=== PATIENT | female | born 1970 | race Caucasian/White ===

== ENCOUNTER 2018-02-22 00:14 | Outpatient (CLI) | payer SELFPAY ==
[2018-02-22 09:46] LABS: HCT 43.2 % (36.0-46.0); Mean Corp. HGB Concentration 34.7 g/dL (32.0-36.0); Mean Corpuscular Hemoglobin 32.9 pg (27.0-33.0); Mean Corpuscular Volume 94.7 fL (80-95); Mean Platelet Volume 9.8 fL (8.0-11.0); Platelet Count 350 x1000/uL (130-400); RBC 4.56 m/cumm (4.00-5.20); RBC Distribution Width 12.7 % (11.7-14.6); White Blood Cell Count 9.48 k/cumm (4.4-10.8)
[2018-02-22 10:40] LABS: ALT 59 U/L (12-78); AST 29 U/L (15-37); Albumin 3.4 g/dL (3.4-5.0); Alkaline Phosphatase 58 U/L (46-116); Anion Gap 9.9 mmol/L (3-11); BUN 11 mg/dL (7-18); Bilirubin, Total 0.6 mg/dL (0.2-1.0); CO2 28.1 mmol/L (21.0-32.0); CREATININE 0.75 mg/dL (0.55-1.02); Calcium 8.8 mg/dL (8.5-10.1); Chloride 103 mmol/L (98-107); Glucose 89 mg/dL (70-100); Potassium 3.7 mmol/L (3.5-5.1); Sodium 141 mmol/L (136-145); Total Protein 7.1 g/dL (6.4-8.2)
== END 2018-02-22 00:34 ==
PROVIDERS: PCP Family Medicine; Visit Provider Family Medicine
DX: I10 Essential (primary) hypertension (principal)
CPT/HCPCS: 36415; 80053; 85027

== ENCOUNTER 2019-08-28 02:27 | Outpatient (CLI) | payer SELFPAY ==
[2019-08-28 07:34] LABS: HCT 42.8 % (36.0-46.0); HGB 14.7 g/dL (12.0-15.5); Mean Corp. HGB Concentration 34.3 g/dL (32.0-36.0); Mean Corpuscular Hemoglobin 32.9 pg (27.0-33.0); Mean Corpuscular Volume 95.7 fL (80-95); Mean Platelet Volume 9.7 fL (8.0-11.0); Platelet Count 374 x1000/uL (130-400); RBC 4.47 m/cumm (4.00-5.20); RBC Distribution Width 12.5 % (11.7-14.6); White Blood Cell Count 8.89 k/cumm (4.4-10.8)
[2019-08-28 08:45] LABS: ALT 40 U/L (14-59); AST 22 U/L (15-37); Albumin 3.7 g/dL (3.4-5.0); Alkaline Phosphatase 59 U/L (46-116); Anion Gap 8.1 mmol/L (3-11); BUN 16 mg/dL (7-18); Bilirubin, Total 0.5 mg/dL (0.2-1.0); CO2 28.9 mmol/L (21.0-32.0); CREATININE 0.86 mg/dL (0.55-1.02); Calcium 8.6 mg/dL (8.5-10.1); Calculated LDL 117 mg/dL (<100); Chloride 102 mmol/L (98-107); Cholesterol 193 mg/dL (<200); Glucose 98 mg/dL (74-106); HDL Cholesterol 48 mg/dL (40-60); Potassium 3.6 mmol/L (3.5-5.1); Sodium 139 mmol/L (136-145); Total Protein 7.3 g/dL (6.4-8.2); Triglyceride 140 mg/dL (<150)
== END 2019-08-28 02:47 ==
PROVIDERS: PCP Family Medicine; Visit Provider Family Medicine
DX: I10 Essential (primary) hypertension (principal)
CPT/HCPCS: 36415; 80053; 80061; 85027

== ENCOUNTER 2021-08-14 02:13 | Outpatient (CLI) | payer BC, SELFPAY ==
[2021-08-14 16:22] LABS: Anion Gap 9.8 mmol/L (3-11); BUN 15 mg/dL (7-18); CO2 26.2 mmol/L (21.0-32.0); CREATININE 0.7 mg/dL (0.55-1.02); Calcium 8.6 mg/dL (8.5-10.1); Chloride 104 mmol/L (98-107); Glucose 98 mg/dL (74-106); Potassium 3.6 mmol/L (3.5-5.1); Sodium 140 mmol/L (136-145)
== END 2021-08-14 02:14 | disposition home or self-care (01) ==
LOC: LBO 02:13
PROVIDERS: PCP Family Medicine; Visit Provider Family Medicine
DX: I10 Essential (primary) hypertension (principal)
CPT/HCPCS: 36415; 80048

== ENCOUNTER 2022-01-17 20:58 | Outpatient (REF) | payer BC, SELFPAY ==
[2022-01-17 21:42] LABS: Bilirubin Negative (Negative); Blood Negative (Negative); Clarity Clear (Clear); Glucose Negative (Negative); Ketones Negative (Negative); Leukocyte Esterase Negative (Negative); Nitrite Negative (Negative); Urobilinogen 0.2 EU/dL (Up TO 0.2); pH 6.5 (5-8)
== END 2022-01-17 20:59 | disposition home or self-care (01) ==
LOC: LBN 20:58
PROVIDERS: PCP Family Medicine; Visit Provider Family Medicine
DX: R30.0 Dysuria (principal); R10.9 Unspecified abdominal pain
CPT/HCPCS: 81003

== ENCOUNTER 2022-01-22 03:06 | Outpatient (CLI) | payer BC, SELFPAY ==
[2022-01-22 14:31] LABS: Abs Immature Grans 0.01 10^3/uL (0.0-0.06); Absolute Basophil Count 0.04 10^3/uL (0.0-0.2); Absolute Eosinophil Count 0.13 10^3/uL (0.0-0.7); Absolute Lymphocyte Count 3.17 10^3/uL (1.2-3.4); Absolute Monocyte Count 0.53 10^3/uL (0.1-0.8); Absolute Neutrophil Count 3.85 10^3/uL (1.2-6.7); Basophils % 0.5; Eosinophils % 1.7; HCT 39.4 % (36.0-46.0); HGB 13.8 g/dL (11.2-15.7); Immature Grans % 0.1; MCH 32.3 pg (27.0-33.0); MCV 92 fL (80-95); MPV 9.8 fL (8.0-11.0); Monocytes % 6.9; Neutrophils % 49.8; Platelet Count 367 10^3/uL (130-400); RBC 4.27 10^6/uL (3.93-5.22); RDW 12.1 % (11.7-14.6); RDW-SD 41.1 fL; WBC 7.73 10^3/uL (4.4-10.8)
[2022-01-22 15:23] LABS: ALT 61 U/L (14-59); AST 26 U/L (15-37); Albumin 3.6 g/dL (3.4-5.0); Alkaline Phosphatase 59 U/L (46-116); Anion Gap 7.6 mmol/L (3-11); BUN 10 mg/dL (7-18); Bilirubin, Total 0.5 mg/dL (0.2-1.0); CO2 27.4 mmol/L (21.0-32.0); CREATININE 0.8 mg/dL (0.55-1.02); Calcium 8.7 mg/dL (8.5-10.1); Chloride 103 mmol/L (98-107); Estimated GFR 90.27 (mL/min/1.73m2); Glucose 88 mg/dL (74-106); Lipase 85 U/L (73-393); Potassium 3.1 mmol/L (3.5-5.1); Sodium 138 mmol/L (136-145); Total Protein 7.8 g/dL (6.4-8.2)
== END 2022-01-22 03:07 | disposition home or self-care (01) ==
LOC: LBO 03:06
PROVIDERS: PCP Family Medicine; Visit Provider Family Medicine
DX: Z00.00 Encounter for general adult medical examination without abnormal findings (principal); R10.9 Unspecified abdominal pain
CPT/HCPCS: 36415; 80053; 83690; 85025

== ENCOUNTER 2022-05-15 07:26 | Day surgery (SDC) | payer BC, SELFPAY ==
--- NOTE | 2022-05-14 20:18 | W.PREOPHP ---
Assessment and Plan Assessment and plan (1) Abdominal pain: Status: Acute Assessment and plan: EGD and colonoscopy today Qualifiers: Abdominal location: epigastric Qualified Code(s): R10.13 - Epigastric pain History of Present Illness History of Present Illness Chief Complaint: Abdominal pain Narrative: She is 51 years old, has been experiencing pain in the midepigastrium that radiates to the left side.? Does not recall when exactly the abdominal pain started.? It sounds like she was taking omeprazole (perhaps [id number]) in January, and this was ultimately changed over to pantoprazole.? Since then, she has had some improvement in her gastroesophageal reflux symptoms, but continues to have pain in the mid epigastrium that is exacerbated with the intake of essentially all kinds of food.? Food products and liquids give her equal amounts of discomfort.? She has associated weight loss because of the pain and associated nausea.? She denies changes in the character of her bowel movements, but she does describe intermittent hematochezia.? She did undergo a CAT scan of the abdomen and pelvis several days ago that demonstrated some sigmoid diverticulosis, with segmental colonic wall thickening.? She denies any family history of colorectal cancers, but details of her family medical history are not well known. Since her last office visit, she did have some improvement in her reflux symptoms, but she is experienced a little bit of recrudescence over the past 2 weeks or so. PFSH All Active Problems HTN (hypertension) (Chronic) Class 3 severe obesity due to excess calories in adult (Acute) Body mass index [BMI] 40.0-44.9, adult (Acute) Nicotine dependence due to vaping tobacco product (Acute) Marijuana use (Acute) uses it to assist with her attention and concentration. Nocturnal leg cramps (Chronic) managing with diet. Abdominal pain (Acute) Steatosis of liver (Acute) Benign cyst of left kidney (Acute) Muscular abdominal pain in left flank (Acute) Medical History Sprain of medial collateral ligament of left knee Surgical History S/P appendectomy Status post tubal ligation Social History Smoking/Tobacco Use Status: Current every day Tobacco Type: e-cigarettes Tobacco: How many years used: 28 Quit status: not considering quitting Second Hand Exposure: Yes Counseling given: provider counseling Smoking risk assessment performed?: Yes Alcohol Intake: never Drug use: Daily Substance use type: marijuana Counseling given: No Details: last use today, 05/15/22 at 0200 Caregiver/Support person: No Household members: none Housing: apartment Number of Children: 2 Communication Needs: None Education Level: college Details: 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 Do you need help understanding health information?: Never current occupation: works as a stitcher for [employer] Pets and animals: Yes Pets and animals: other Details: Fish Sexually active: Yes Do you think of yourself as: straight/heterosexual Current gender identity: female What is your relationship status?: don't know How often do you talk on the phone with friends or family?: never How often do you get together with friends or relatives?: three or more times per week Do you belong to any clubs or organized social groups?: no Panel score (0-1 are the most socially isolated patients): 1 What type of physical activity do you participate in: none Glendy/Yarsani: Other Special glendy needs: No Seatbelt use: always Drive intox or ride w/intox trailer tank truck driver: No Do you feel safe at home: Yes Do you feel safe in your relationship?: Yes Female Reproductive History Menstrual Duration of menses: 8-10 days control method: permanent sterilization Meds Allergies and Home Medications Allergies Allergy/AdvReac Type Severity Reaction Status Date / Time Sulfa (Sulfonamide Allergy Severe Anaphylaxsi Verified 05/15/22 07:44 Antibiotics) s erythromycin base Allergy Intermediate Hives Verified 05/15/22 07:44 [Erythromycin Base] Home Medications Medication Instructions Recorded Confirmed Type acetaminophen 325 mg tablet 325 mg PO PRN 10/23/17 05/15/22 History (Tylenol) diphenhydramine HCl 25 mg capsule 50 mg PO DAILY PRN allergic 01/04/21 05/15/22 History symptoms nifedipine 90 mg tablet,extended 90 mg PO DAILY #90 tabs 12/12/21 05/15/22 Rx release lisinopril 20 mg tablet 40 mg PO DAILY #60 tabs 04/18/22 05/15/22 Rx pantoprazole 40 mg tablet,delayed 40 mg PO DAILY #30 tabs 04/18/22 05/15/22 Rx release Exam Const General: cooperative and comfortable Orientation: awake and oriented x3 Eyes General: appearance normal, both eyes and all related structures Conjunctivae: conjunctivae normal Sclera: sclerae normal Resp Effort & Inspection: normal respiratory effort and able to speak in complete sentences Auscultation: clear to auscultation bilaterally Cardio Jugular venous pressure: no JVD Rate: regular rate Rhythm: regular rhythm Heart Sounds: S1 normal and S2 normal GI Inspection: non-distended Palpation: soft, no guarding, no hernias and nontender Auscultation: normal bowel sounds Skin General skin exam: normal turgor Neuro General: patient alert, patient awake and patient oriented x3 Cognition: normal cognition Extrem Right lower extremity: no edema Left lower extremity: no edema
--- NOTE | 2022-05-14 20:19 | W.PM.DSUDISC ---
Date of service: 05/15/22 Time of Service: 09:31 Discharge Plan Disposition Patient Disposition: Home Condition: Good Discharge Details Reason For Visit: EGD and colonoscopy Attending Provider: Tato Davis Primary Care Provider: Luisa Pendleton Home Meds and New Rx's Prescriptions: New sucralfate [Carafate] 1 gram tablet 1 g PO QAC Qty: 30 3RF Rx Instructions: Take 1 tablet by mouth every night Continued acetaminophen [Tylenol] 325 MG tablet 325 mg PO PRN nifedipine 90 mg tablet extended release 90 mg PO DAILY Qty: 90 3RF pantoprazole 40 mg tablet,delayed release (DR/EC) 40 mg PO DAILY Qty: 30 2RF lisinopril 20 mg tablet 40 mg PO DAILY Qty: 60 3RF diphenhydramine HCl 25 mg capsule 50 mg PO DAILY PRN (Reason: allergic symptoms) Label Comments: allergies Discontinued polyethylene glycol 3350 17 gram/dose powder 238 g PO ONCE Qty: 238 0RF Rx Instructions: take per colonoscopy instructions bisacodyl [Dulcolax (bisacodyl)] 5 mg tablet,delayed release (DR/EC) 5 mg PO ONCE Qty: 4 0RF Rx Instructions: take per colonoscopy instructions Discharge Instructions Instructions: Johnson Esophagus (GEN), Diverticulosis (GEN), Diverticulosis Diet (GEN), Hemorrhoids (GEN) Additional Instructions: Kelly, we were able to complete the upper endoscopy, as well as the colonoscopy today without much difficulty. The most significant finding on your upper endoscopy is some changes around your gastroesophageal junction that seems consistent with Johnson's esophagus. I performed multiple biopsies. I will notify you when I have the results of the pathology report. Typically I would recommend repeating the upper endoscopy in about 3 years, but we can wait and see what the pathology results are before deciding on that. Your colonoscopy showed diverticulosis. This is the most likely cause of your abdominal discomfort. I have attached some instructions regarding management of diverticulosis, as well as suggestions for diverticulosis diet. 1. If tolerated, consume a soft, low fiber diet for 1-2 days. 2. Do not drive, drink alcohol, operate machinery, make critical decisions, or do activities that require coordination or balance for 24 hours. 3. Because air was put into your colon during the procedure, expelling air from your rectum (passing gas or farting) is normal. 4. You may not have a bowel movement for 1-3 days because of the colonoscopy prep. This is normal. 5. You may experience a sore throat for 24 to 48 hours. You may use throat lozenges or gargle with warm salt water to relieve the discomfort. 6. Because air was put into your stomach during the procedure, you may experience some belching. 7. Go directly to the emergency room if you notice any of the following: Develop chills (warm to touch), or if you have a thermometer and your temperature is above 101 Difficulty breathing or difficultly swallowing Persistent vomiting Severe abdominal pain, other than gas cramps Severe chest pain Black, tarry stools Any bleeding ? exceeding one tablespoon 8. Call your physician if the site where your intravenous was started becomes red, swollen, painful, and warm to touch. 9. Your physician has reviewed your pre-procedure medications. Please continue to take those medications as previously ordered. You will be given specific information/education regarding any changes to your medications before leaving. Activity:: Activity as Tolerated Diet:: As Tolerated Discharge Orders Discharge Orders: Discharge Order (Routine); Ordered 05/14/22 Ordered By: Tato Davis DS: Diagnosis Discharge Diagnosis (1) Abdominal pain: Status: Acute Asessment and Plan: Upper endoscopy shows some evidence of Johnson's esophagus -Follow-up on the biopsy results -Start Carafate Colonoscopy demonstrated diverticulosis
--- NOTE | 2022-05-14 20:21 | W.PM.ENDDOP ---
Date of service: 05/15/22 Time of Service: 09:41 Endoscopy Report DATE OF PROCEDURE: 05/15/22 PRE-OP DIAGNOSIS: Abdominal pain POST-OP DIAGNOSIS: other (Johnson's esophagus, diverticulosis, internal hemorrhoids) PROCEDURE: EGD and colonoscopy SURGEON: Tato Davis ANESTHESIA TYPE: General:No Airway ESTIMATED BLOOD LOSS: 20 PATHOLOGY: other (Duodenal biopsies, gastric antral biopsies, gastric body biopsies, GE junction biopsies) COMPLICATIONS: None DISPOSITION: same day INDICATIONS: She is 51 years old, has been experiencing pain in the midepigastrium that radiates to the left side.? Does not recall when exactly the abdominal pain started.? It sounds like she was taking omeprazole (perhaps [id number]) in January, and this was ultimately changed over to pantoprazole.? Since then, she has had some improvement in her gastroesophageal reflux symptoms, but continues to have pain in the mid epigastrium that is exacerbated with the intake of essentially all kinds of food.? Food products and liquids give her equal amounts of discomfort.? She has associated weight loss because of the pain and associated nausea.? She denies changes in the character of her bowel movements, but she does describe intermittent hematochezia.? She did undergo a CAT scan of the abdomen and pelvis several days ago that demonstrated some sigmoid diverticulosis, with segmental colonic wall thickening.? She denies any family history of colorectal cancers, but details of her family medical history are not well known. PREP: Miralax/Dulcolax PROCEDURE START TIME: 08:56 PROCEDURE END TIME: 09:18 COLONOSCOPY RETRACTION TIME: 14 FINDINGS: Short segment Johnson's esophagus extending from 38 to 40 cm, grade 3 internal hemorrhoids, diverticulosis, PROCEDURE DESCRIPTION: After the initiation of monitored anesthetic care, and with the assistance of a bite block, I advanced a standard gastroscope through the mouth past the hypopharynx and into the esophagus.? Under the direct vision of the scope, I advanced down the esophagus into the stomach.? Once I entered the stomach, I performed a brief inspection, followed by retroflexion towards the gastric cardia.? This appeared normal.? After that, I gently advanced the scope around the incisura angularis and examined the pylorus.? This also appeared normal.? Next, I advanced the scope through the pylorus into the duodenum.? The mucosa was pink and healthy appearing.? There were no abnormalities.? I was able to visualize bile draining into the duodenum through the ampulla Vater. I perform random biopsies of the duodenum. There was minimal bleeding. ?Next, I began retracting the endoscope.? Again, the stomach appeared grossly normal. I did perform some random biopsies of the gastric antrum and body to rule out Helicobacter pylori as a source of her abdominal pain. I then gently desufflated some of the stomach, and withdrew the endoscope into the distal esophagus. There was short segment Johnson's esophagitis extending from 38 to 40 cm. I performed four-quadrant biopsies here. ?Finally, I withdrew the scope along the length of the esophagus taking great care to examine the entirety of the mucosa.? I did not appreciate any abnormalities. We then moved Kelly into the left lateral decubitus position, I began by performing an external anorectal exam.? Perineum and skin were normal, as was the anal verge.? There were grade 3 internal hemorrhoids. using insufflation, I then advanced the colonoscope beyond the rectal folds and into the sigmoid colon before advancing towards the cecum.? There was sigmoid diverticulosis.the quality of the prep was adequate.? The scope was noted to be in the cecum by identification of the ileocecal valve and appendiceal orifice.? I then began withdrawing the colonoscope using repeated irrigation as necessary for full evaluation of the colonic mucosa. ?Once the scope was withdrawn to the level of the rectum, great care was taken to examine portions of the rectal folds.? I did not see any evidence of polyps or other mucosal abnormalities. Finally, the scope was withdrawn and the patient was brought to the same-day surgery recovery unit as the anesthetic wore off. ?The findings and instructions were shared with the patient prior to discharge. Based on the Johnson's esophagus, my inclination is to repeat the EGD in about 3 years as surveillance. I will follow-up on the pathology results to help guide that decision. We will also start some Carafate to see if that helps with her symptoms.
[2022-05-15 07:32] VITALS: BP 142/85; PULSE 75; RESP 18; TEMP 36.6; O2SAT 100
[2022-05-15] MEDS: Lactated Ringers 1,000 ML 80 ML IV (08:16)
--- NOTE | 2022-05-15 08:34 | W.ANESPRE ---
General Info Date of Service Date Performed: 05/15/22 Height: 5 ft 7.5 in Weight: 103.98 kg Body Mass Index (BMI): 35.4 Surgical Procedure: Operation Date: 05/15/22 08:35 Proposed Procedure Side Surgeon p Colonoscopy/Gastroscopy Tato Davis MD Meds Allergies and Home Medications Allergies Allergy/AdvReac Type Severity Reaction Status Date / Time Sulfa (Sulfonamide Allergy Severe Anaphylaxsi Verified 05/15/22 07:44 Antibiotics) s erythromycin base Allergy Intermediate Hives Verified 05/15/22 07:44 [Erythromycin Base] Home Medication Medication Instructions Recorded acetaminophen 325 mg tablet 325 mg PO PRN 10/23/17 (Tylenol) diphenhydramine HCl 25 mg capsule 50 mg PO DAILY PRN allergic 01/04/21 symptoms nifedipine 90 mg tablet,extended 90 mg PO DAILY #90 tabs 12/12/21 release lisinopril 20 mg tablet 40 mg PO DAILY #60 tabs 04/18/22 pantoprazole 40 mg tablet,delayed 40 mg PO DAILY #30 tabs 04/18/22 release Current Visit Medications: Current Medications Generic Name Dose Route Start Last Admin Trade Name Freq PRN Reason Stop Dose Admin Hyoscyamine Sulfate 0.125 mg 05/14/22 20:22 Hyoscyamine 0.125 Mg Sl/Oral/Chew SL DIRECTED PRN Ringer's Solution 1,000 mls @ 80 mls/hr 05/15/22 06:00 05/15/22 08:16 IV 06/13/22 23:59 80 mls/hr INFUSION NILAY Administration IV Miscellaneous Supplies 1 each 05/15/22 06:00 Iv Access IV 06/13/22 23:59 DIRECTED NILAY Ondansetron HCl 4 mg 05/14/22 20:22 Ondansetron 4 Mg/2 Ml Vial IVP Q4H PRN PRN Nausea / Vomiting Sodium Chloride 0 ml 05/15/22 06:00 Normal Saline Flush 10 Ml Syr IV 06/13/22 23:59 PRN PRN Sodium Chloride 0 ml 05/15/22 06:00 Normal Saline 10 Ml Vial IJ 06/13/22 23:59 DIRECTED PRN Sterile Water 0 ml 05/15/22 06:00 Water,Injection,Sterile 10 Ml Vial IJ 06/13/22 23:59 DIRECTED PRN PFSH Active Problems Active Problems: Problem Status Onset Code HTN (hypertension) I10 Class 3 severe obesity due to excess calories in adult E66.01 Body mass index [BMI] 40.0-44.9, adult Z68.41 Nicotine dependence due to vaping tobacco product F17.290 Marijuana use F12.90 Nocturnal leg cramps G47.62 Abdominal pain R10.9 Steatosis of liver K76.0 Benign cyst of left kidney N28.1 Muscular abdominal pain in left flank M79.18 Medical History Medical History Sprain of medial collateral ligament of left knee Surgical History Surgical History S/P appendectomy Status post tubal ligation Tobacco Smoking/Tobacco Use Status: Current every day Tobacco Type: e-cigarettes Second hand exposure: Yes Counseling given: provider counseling Alcohol Alcohol Intake: never Substance Use Substance use: Daily Substance use type: marijuana Details: last use today, 05/15/22 at 0200 Vital Signs and Lab Results Vital Signs Most Recent Vital Signs in EMR: Most Recent Vital Signs Temp Pulse Resp BP Pulse Ox 36.6 C 75 18 142/85 H 100 05/15/22 07:32 05/15/22 07:32 05/15/22 07:32 05/15/22 07:32 05/15/22 07:32 Point of Care Results Point of Care Results: POC- Test(urine) Negative 05/15/22 07:45 Lab Results Blood Type / Crossmatch: No Data to Display Complete Blood Count: No Data to Display Complete Metabolic Panel: No Data to Display Liver Function Panel: No Data to Display Coagulation Panel: No Data to Display Cardiac Panel: No Data to Display Arterial Blood Gas: No Data to Display Venous Blood Gas: No Data to Display Pancreas Panel: No Data to Display Thyroid Panel: No Data to Display Infectious Disease: No Data to Display Blood Cultures: No Data to Display Toxicology Panel: No Data to Display Panel: No Data to Display Anesthesia Assessment and Plan Anesthesia History Personal History: PONV Family History: No Family History of Anesthesia Complications Exercise Tolerance Exercise Tolerance: Metabolic Equivalents>4 Pertinent Negatives Pertinent Negatives: No Symptoms of GERD (None now, vomited this am), No Major Cardiovascular Symptoms or Complaints, No Major Pulmonary Symptoms or Complaints and No History of CVA/TIA Cardiac & Pulmonary Exam Cardiac Exam: Normal S1/S2 Heart Sounds Pulmonary Exam: Clear Bilateral Breath Sounds Implantable Cardiac Device Does patient have a Pacemaker or an ICD?: No Airway Exam Known Difficult Airway: No Mallampati Class: 2 Mouth Opening: Normal (> 3cm) Thyromental Distance: Greater than 3 cm Neck Range of Motion: Full ROM Neck Circumference: Normal Teeth Condition: Normal Dentition ASA Classification ASA Score: ASA 3 Emergency Case?: No NPO Status NPO Status: NPO Clears >2 hours, Solids >8 hours Status Status: Negative HCG Anesthesia Plan Resuscitation Status: Full Code Anesthesia Technique: General Anesthesia Airway Planned: Natural Airway Monitors Used: Standard Monitors
[2022-05-15 08:38] VITALS: BMI 35.4
--- NOTE | 2022-05-15 09:00 | STOM_PTH ---
PATIENT: Kelly Acuña LOC: [facility] U#:[id number] AGE/SX: 51/F ROOM: RE05/15/[address]: Tato Davis MD : 1970 BED: DIS: 05/15/2022 SPEC #: [id number] RECD: 05/15/22 12:42 STATUS: HIRAL RE #: [id number] KANE: 05/15/22 09:[address]: Tato Davis DEPT: Surgical Specimen RECD BY: Priya Velazquez ENTERED: 05/15/22 12:43 SP TYPE: STOMACH OTHR DR: Luisa Pendleton Tissues: 1 - BIOPSY BOWEL 2 - STOMACH BIOPSY 3 - STOMACH BIOPSY 4 - ESOPHAGUS BIOPSY Procedures: GROSS AND MICRO LEVEL 4 Comments: [id number]
[2022-05-15 09:27] VITALS: BP 110/51; PULSE 63; RESP 16; TEMP 36; O2SAT 99
--- NOTE | 2022-05-15 09:39 | W.ANESPOSTOP ---
Postoperative Evaluation Date, Time and Location Date Performed: 05/15/22 Time Performed: 09:28 Patient Location: Day Surgery Unit Vital Signs Most Recent Imported Vital Signs: Most Recent Vital Signs Temp Pulse Resp BP Pulse Ox 36.0 C L 63 16 110/51 L 99 05/15/22 09:27 05/15/22 09:27 05/15/22 09:27 05/15/22 09:27 05/15/22 09:27 Pain Score Most Recent Pain Score: Most Recent Pain Score Pain Level 0 05/15/22 09:27 Assessment Mental Status: Awake (Alert & Oriented to Patient Baseline) Airway and Respiratory Function: Patent airway with normal (patient baseline) respiratory exam Cardiovascular Function: Hemodynamically Stable Hydration Status: Adequately Hydrated Nausea & Vomiting: No Nausea or Vomiting Pain: Pt. Denies Any Pain Peripheral Nerve Block: Patient did not receive a nerve block
[2022-05-15 10:08] VITALS: BP 137/76; PULSE 54; RESP 18; TEMP 36.1; O2SAT 100
== END 2022-05-15 10:20 | disposition home or self-care (01) ==
PROVIDERS: PCP Family Medicine; Visit Provider Surgery
PROC: (CPT 45378; principal; 2022-05-15 08:30)
DX: R10.13 Epigastric pain; K22.70 Barrett's esophagus without dysplasia; K57.30 Diverticulosis of large intestine without perforation or abscess without bleeding; K64.8 Other hemorrhoids; K22.89 Other specified disease of esophagus
CPT/HCPCS: 45378; 43239; 81025; 88305; J2405

== ENCOUNTER 2022-07-04 14:53 | Outpatient (CLI) | payer BC, SELFPAY ==
[2022-07-04 12:01] LABS: Abs Immature Grans 0.03 10^3/uL (0.0-0.06); Absolute Basophil Count 0.06 10^3/uL (0.0-0.2); Absolute Eosinophil Count 0.15 10^3/uL (0.0-0.7); Absolute Monocyte Count 0.62 10^3/uL (0.1-0.8); Basophils % 0.5; Eosinophils % 1.3; HCT 39.5 % (36.0-46.0); Immature Grans % 0.3; Lymphocytes % 25.3; MCH 32.3 pg (27.0-33.0); MCHC 35.4 % (32.0-36.0); MCV 91 fL (80-95); MPV 9.8 fL (8.0-11.0); Monocytes % 5.4; Neutrophils % 67.2; Platelet Count 357 10^3/uL (130-400); RBC 4.33 10^6/uL (3.93-5.22); RDW 12.2 % (11.7-14.6); WBC 11.46 10^3/uL (4.4-10.8)
[2022-07-04 12:47] LABS: ALT 51 U/L (14-59); AST 22 U/L (15-37); Albumin 3.4 g/dL (3.4-5.0); Alkaline Phosphatase 73 U/L (46-116); Anion Gap 7.7 mmol/L (3-11); BUN 12 mg/dL (7-18); Bilirubin, Total 0.9 mg/dL (0.2-1.0); CO2 27.3 mmol/L (21.0-32.0); CREATININE 0.8 mg/dL (0.55-1.02); Calcium 8.9 mg/dL (8.5-10.1); Chloride 107 mmol/L (98-107); Estimated GFR 90.27 (mL/min/1.73m2); Glucose 122 mg/dL (74-106); Potassium 3.2 mmol/L (3.5-5.1); Sodium 142 mmol/L (136-145); TSH (W/Ref FT4) 0.95 uIU/mL (0.36-3.74); Total Protein 7.5 g/dL (6.4-8.2)
== END 2022-07-04 14:54 | disposition home or self-care (01) ==
LOC: LBO 14:53
PROVIDERS: PCP Family Medicine; Visit Provider Nurse Practitioner Family
DX: I10 Essential (primary) hypertension (principal); R10.9 Unspecified abdominal pain; K22.70 Barrett's esophagus without dysplasia; K57.30 Diverticulosis of large intestine without perforation or abscess without bleeding
CPT/HCPCS: 36415; 80053; 84443; 85025

== ENCOUNTER 2022-08-27 03:05 | Outpatient (CLI) | payer BC, SELFPAY ==
[2022-08-27 15:30] LABS: Abs Immature Grans 0.01 10^3/uL (0.0-0.06); Absolute Basophil Count 0.05 10^3/uL (0.0-0.2); Absolute Eosinophil Count 0.11 10^3/uL (0.0-0.7); Absolute Lymphocyte Count 3.06 10^3/uL (1.2-3.4); Absolute Monocyte Count 0.49 10^3/uL (0.1-0.8); Absolute Neutrophil Count 4.72 10^3/uL (1.2-6.7); Basophils % 0.6; Eosinophils % 1.3; HCT 41.5 % (36.0-46.0); HGB 14.3 g/dL (11.2-15.7); Immature Grans % 0.1; Lymphocytes % 36.3; MCH 31.6 pg (27.0-33.0); MCHC 34.5 % (32.0-36.0); MCV 92 fL (80-95); MPV 9.5 fL (8.0-11.0); Monocytes % 5.8; Neutrophils % 55.9; Platelet Count 389 10^3/uL (130-400); RBC 4.53 10^6/uL (3.93-5.22); RDW 12.4 % (11.7-14.6); WBC 8.44 10^3/uL (4.4-10.8)
[2022-08-27 15:49] LABS: Hemoglobin A1C 5.3 % (<5.7)
[2022-08-27 16:02] LABS: Calculated LDL 125 mg/dL (<100); Cholesterol 209 mg/dL (<200); HDL Cholesterol 67 mg/dL (40-60); Magnesium 1.9 mg/dL (1.8-2.4); Triglyceride 87 mg/dL (<150)
[2022-08-27 16:03] LABS: Iron 193 ug/dL (50-170)
[2022-08-27 16:18] LABS: Ferritin 367 ng/mL (8-252)
[2022-08-28 10:31] LABS: Hepatitis C Ab w Rflx HCV PCR Negative (Negative)
[2022-08-28 10:51] LABS: Hep B Core Antibody Negative (Negative)
[2022-08-28 10:53] LABS: HBs Antibody, Quant 192.1 mIU/mL (See Note); Hepatitis B Surface Ab Positive (See Note)
[2022-08-28 10:57] LABS: Hep A Total Ab w Rflx IgM Negative (Negative)
[2022-08-28 10:58] LABS: Alpha 1 Antitrypsin,Serum 149 mg/dL (90-200)
[2022-08-28 14:10] LABS: ANA Interpretation Negative (Negative)
[2022-08-28 21:44] LABS: Hepatitis Be Antigen Negative (Negative)
[2022-08-29 12:05] LABS: Smooth Muscle Ab Screen Negative (Negative)
[2022-08-29 14:25] LABS: Mitochondrial Ab, M2 <0.1 U
[2022-08-29 16:25] LABS: Liver/Kidney Microsome Type 1 <5.0 U
== END 2022-08-27 03:06 | disposition home or self-care (01) ==
LOC: LBO 03:05
PROVIDERS: Nurse Practitioner Adult Health; PCP Nurse Practitioner Family; Visit Provider Nurse Practitioner Family
DX: I10 Essential (primary) hypertension (principal)
CPT/HCPCS: 36415; 80061; 83516; 86704; 86706; 86709; 86803; 82103; 82728; 83036; 83540; 83735; 85025; 86038; 86255; 87350

== ENCOUNTER 2022-12-01 10:29 | Outpatient (CLI) | payer BC, SELFPAY ==
--- NOTE | 2022-12-01 10:15 | RT.EKG_ITS ---
APPROVED REPORT Exam: Resting ECG Reason for Exam: Yearly Patient Location: O HR:64 bpm ECG Measurements Heart Rate 64 AXIS TX 180 P 41 QRSd 82 QRS 42 QT 414 T 40 QTc 427 Conclusion Sinus rhythm...normal P axis, V-rate 50- 99 Normal Electrocardiogram
== END 2022-12-01 10:30 | disposition home or self-care (01) ==
LOC: DI.CM 10:30
PROVIDERS: PCP Nurse Practitioner Family; Visit Provider Nurse Practitioner Family
DX: R07.9 Chest pain, unspecified (principal)
CPT/HCPCS: 93010

== ENCOUNTER 2022-12-06 09:35 | Outpatient (RCR) | payer BC, SELFPAY ==
--- NOTE | 2022-12-06 10:00 | HOLTER_ITS ---
APPROVED REPORT Conclusion This is a 48-hour Holter monitor ordered for dizziness Rhythm throughout is sinus with an average heart rate of 72. Minimum was 54, maximum 124 There were very rare isolated atrial and ventricular ectopic beats There was no atrial fibrillation (the episode labeled atrial fibrillation was sinus rhythm in the 80s with atrial premature contractions), no SVT, no high-grade AV block, no pauses greater than 3 second s There were no apparent patient symptoms
== END 2022-12-13 23:59 | disposition home or self-care (01) ==
LOC: CARDOPNVT 09:35
PROVIDERS: PCP Nurse Practitioner Family; Visit Provider Nurse Practitioner Family
DX: R42 Dizziness and giddiness (principal)
CPT/HCPCS: 93225; 93226

== ENCOUNTER 2023-01-01 19:58 | Outpatient (REF) | payer BC, SELFPAY ==
[2023-01-01 20:52] LABS: HCT 40.5 % (36.0-46.0); HGB 14.2 g/dL (11.2-15.7); MCH 31.9 pg (27.0-33.0); MCHC 35.1 % (32.0-36.0); MCV 91 fL (80-95); MPV 10.1 fL (8.0-11.0); Platelet Count 372 10^3/uL (130-400); RBC 4.45 10^6/uL (3.93-5.22); RDW 12.4 % (11.7-14.6); RDW-SD 41.4 fL; WBC 7.78 10^3/uL (4.4-10.8)
[2023-01-01 21:18] LABS: TSH (W/Ref FT4) 2.28 uIU/mL (0.36-3.74); Vitamin B12 515 pg/mL (193-986)
[2023-01-04 09:22] LABS: Lab Add On Test DONE
[2023-01-04 09:29] LABS: BUN 10 mg/dL (7-18); Chloride 103 mmol/L (98-107); Estimated GFR 68.63 (mL/min/1.73m2); Glucose 135 mg/dL (74-106); Potassium 3.2 mmol/L (3.5-5.1); Sodium 140 mmol/L (136-145)
== END 2023-01-01 19:59 | disposition home or self-care (01) ==
LOC: LBN 19:58
PROVIDERS: Nurse Practitioner Family; PCP Nurse Practitioner Family; Visit Provider Nurse Practitioner Family
DX: R53.83 Other fatigue (principal); I10 Essential (primary) hypertension; R42 Dizziness and giddiness; K21.9 Gastro-esophageal reflux disease without esophagitis; R10.9 Unspecified abdominal pain; R00.2 Palpitations; Z86.39 Personal history of other endocrine, nutritional and metabolic disease
CPT/HCPCS: 80048; 82947; 84520; 85027; 82435; 82565; 82607; 83735; 84132; 84295; 84443

== ENCOUNTER 2023-08-24 11:42 | Outpatient (REF) | payer BC, SELFPAY ==
[2023-08-24 14:59] LABS: HCT 41.2 % (36.0-46.0); HGB 14.1 g/dL (11.2-15.7); MCH 32.2 pg (27.0-33.0); MCHC 34.2 % (32.0-36.0); MCV 94 fL (80-95); MPV 9.7 fL (8.0-11.0); Platelet Count 393 10^3/uL (130-400); RBC 4.38 10^6/uL (3.93-5.22); RDW 12.2 % (11.7-14.6); RDW-SD 42.6 fL; WBC 7.31 10^3/uL (4.4-10.8)
[2023-08-24 15:05] LABS: ESR 14 mm/hr (0-30)
[2023-08-24 15:10] LABS: ALT 28 U/L (14-59); AST 17 U/L (15-37); Albumin 3.9 g/dL (3.4-5.0); Alkaline Phosphatase 67 U/L (46-116); Anion Gap 11.3 mmol/L (3-11); BUN 16 mg/dL (7-18); Bilirubin, Total 0.8 mg/dL (0.2-1.0); CO2 26.7 mmol/L (21.0-32.0); CREATININE 0.9 mg/dL (0.55-1.02); Calcium 9.1 mg/dL (8.5-10.1); Chloride 104 mmol/L (98-107); Glucose 85 mg/dL (74-106); Potassium 3.9 mmol/L (3.5-5.1); Sodium 142 mmol/L (136-145); Total Protein 7.6 g/dL (6.4-8.2)
[2023-08-24 15:12] LABS: C-Reactive Protein < 0.50 mg/dL (<or=0.5)
[2023-08-24 15:22] LABS: Hemoglobin A1C 5.2 % (<5.7)
== END 2023-08-24 11:43 | disposition home or self-care (01) ==
LOC: LBN 11:42
PROVIDERS: PCP Nurse Practitioner Family; Visit Provider Nurse Practitioner Family
DX: K76.0 Fatty (change of) liver, not elsewhere classified (principal); G47.62 Sleep related leg cramps; M25.59 Pain in other specified joint; R73.9 Hyperglycemia, unspecified
CPT/HCPCS: 80053; 85027; 85652; 83036; 83735; 86140

== ENCOUNTER → 2023-09-05 02:39 | Outpatient (CLI) | payer BC, SELFPAY ==
--- NOTE | 2023-09-05 08:00 | DI.DEXA_ITS ---
Exam(s) XR DEXA BONE DENSITY W/WO SERGIO EXAM: XR DEXA BONE DENSITY W/WO SERGIO CLINICAL HISTORY: screening for osteoporosis in postmenopausal woman, z78.0 TECHNIQUE: Routine DEXA evaluation of the lumbar spine, hip, or forearm. COMPARISON: No exams were available for comparison FINDINGS: Performed on a Hologic unit. Lateral image: No obvious compression fracture evident. Lumbar Spine total T-score: -1.3 Hip total T-score:-1.4 Independent reading at the level of the femoral neck yields T-score of -1.8 Forearm total T-score: 0.5 IMPRESSION: Bone mineral density measures in the osteopenia range. Fracture risk is moderate. Note: Any spine fracture indicates 5x risk for subsequent spine fracture and 2x risk for subsequent h ip fracture. World Health Organization criteria for BMD interpretation classify patients: Normal...... T- Score at or above -1.0 Osteopenic... T- Score between -1.0 and -2.5 Osteoporosis... T-Score at or below -2.5
== END ==
PROVIDERS: PCP Nurse Practitioner Family; Visit Provider Nurse Practitioner Family
DX: Z78.0 Asymptomatic menopausal state (principal); Z13.820 Encounter for screening for osteoporosis
CPT/HCPCS: 77080

== ENCOUNTER 2023-10-03 04:53 | Emergency (ER) | payer BC, SELFPAY ==
[2023-10-03 04:58] VITALS: BP 149/76; PULSE 78; RESP 16; TEMP 36.7; O2SAT 99
--- NOTE | 2023-10-03 05:15 | DI.CT_ITS ---
Exam(s) CT ABDOMEN PELVIS W EXAM: CT ABDOMEN PELVIS W CLINICAL HISTORY: L perineal swelling, inferior to vaginal opening TECHNIQUE: Imaging Protocol: Axial computed tomography images with coronal and sagittal reformatted images were created and reviewed. CONTRAST MATERIAL: Intravenous: Omnipaque 350 Contrast volume:100 mL Oral: No COMPARISON: CT CT ABDOMEN PELVIS W from 03/09/2022 FINDINGS: ABDOMEN: Lung Bases: Normal where visualized. Liver: Normal density. No measurable mass. Portal, Superior Mesenteric, and Splenic Veins: Unremarkable. Gallbladder and Biliary Tract: The gallbladder is contracted. No significant biliary ductal dilatati on is present. Pancreas: Normal density, no abnormal calcifications or inflammatory process. Spleen: Normal. Adrenals: No masses seen. Kidneys: Normal size, contour and axis. No radiodense stones or obstructive uropathy. There is a stab le left renal cyst. No follow-up is recommended. Abdominal Aorta: Abdominal portion non-dilated. Atherosclerotic calcification is present. Bowel: There is diverticulosis of the colon without evidence of acute diverticulitis. There is a mod erate amount of stool throughout the colon suggesting constipation. There is no evidence of bowel ob struction or bowel wall thickening. No evidence of appendicitis. Peritoneal Cavity: No ascites, collection or mesenteric inflammatory response. No free air. Lymph Nodes: Within normal limits. Bones: Within normal limits for the patient's age. There is L5 spondylolysis and grade 1 spondylolis thesis of L5 on S1. There is a mild left convex scoliosis of the lumbar spine. Soft Tissues: There is a solid 5.2 x 3.3 cm mass in the left perianal soft tissues. PELVIS: Bladder: Symmetric distention, no gross wall thickening. Reproductive Organs: There has been interval increase in size of the right adnexal mass cyst which me asures 9.9 cm x 7.9 cm. (Series 5, image 725). This compares to 7.5 x 7.2 cm on the prior examinati on. This may be ovarian in origin. Lymph Nodes: Within normal limits. Bones: Within normal limits for the patient's age. IMPRESSION: 1. 5.2 x 3.3 cm soft tissue mass in the left perineum. Differential considerations include hematoma, infected Bartholin's gland cyst, neoplasm, leiomyoma or other sarcoma. ARCHITECTURAL MODEL MAKER consult is recommended. 2. Interval increase in size of the cystic right adnexal lesion. Nonemergent pelvic ultrasound shoul d be considered. Corporate Sales Trainer consult is recommended. Unexpected findings RADIATION DOSE DELIVERED: 1,287.26mGy.cm Total DLP DATA REPOSITORY: All CT scans at this facility are submitted to the National Radiology Data Registry (NRDR) Dose Index Registry (DIR) with the [employer] (ACR). RADIATION OPTIMIZATION: All CT scans at this facility use at least one of these dose optimization te chniques: automated exposure control; mA and/or kV adjustment per patient size (includes targeted exa ms where dose is matched to clinical indication); or iterative reconstruction.
--- NOTE | 2023-10-03 05:19 | W.ED.GENAD ---
Discharge Plan Discharge Details Chief Complaint: HEALTHCARE NETWORK CONSULTANT Primary Care Provider: Mark Weems ED Provider: Fay Lei Home Meds and New Rx's Prescriptions: No Action potassium chloride 20 mEq tablet extended release 20 meq PO DAILY Qty: 90 3RF pantoprazole 40 mg tablet,delayed release (DR/EC) 40 mg PO BID Qty: 180 3RF acetaminophen [Tylenol] 325 MG tablet 325 mg PO PRN nifedipine 90 mg tablet extended release 90 mg PO DAILY Qty: 90 3RF lisinopril 40 mg tablet 40 mg PO DAILY Qty: 90 3RF diphenhydramine HCl 25 mg capsule 50 mg PO DAILY PRN (Reason: allergic symptoms) Patient Comments: allergies HPI General Mode of arrival: ambulatory. Date/Time Provider Initiated Documentation: 10/03/23 04:55. Limitations to Documentation: no limitations. Information obtained by: patient. HPI Narrative: 53yo F with hx HTN, GERD, presenting for perineum pain and swelling. Reports feeling moderate to severe pain in her perineum, worse with sitting, worsening over the past two days. No vaginal discharge or bleeding. Normal bowel movements. Never had similar pain before. No recent trauma or injury to the area. She is is otherwise in her usual state of health with no fevers, chills, rash, nasuea, vomiting, abdominal pain, dysuria, hematuria, or other concerns. Related Data Home Medications Medication Instructions Recorded Confirmed acetaminophen 325 mg tablet 325 mg PO PRN 10/23/17 10/03/23 (Tylenol) diphenhydramine HCl 25 mg capsule 50 mg PO DAILY PRN allergic 01/04/21 10/03/23 symptoms pantoprazole 40 mg tablet,delayed 40 mg PO BID #180 tabs 01/01/23 10/03/23 release potassium chloride 20 mEq 20 meq PO DAILY #90 tabs 01/08/23 10/03/23 tablet,extended release nifedipine 90 mg tablet,extended 90 mg PO DAILY #90 tabs 06/28/23 10/03/23 release lisinopril 40 mg tablet 40 mg PO DAILY #90 tabs 08/09/23 10/03/23 Previous Rx's Medication Instructions Recorded pantoprazole 40 mg tablet,delayed 40 mg PO BID #180 tabs 01/01/23 release potassium chloride 20 mEq 20 meq PO DAILY #90 tabs 01/08/23 tablet,extended release nifedipine 90 mg tablet,extended 90 mg PO DAILY #90 tabs 06/28/23 release lisinopril 40 mg tablet 40 mg PO DAILY #90 tabs 08/09/23 Allergies Allergy/AdvReac Type Severity Reaction Status Date / Time Sulfa (Sulfonamide Allergy Severe Anaphylaxsi Verified 10/03/23 05:02 Antibiotics) s erythromycin base Allergy Intermediate Hives Verified 10/03/23 05:02 [Erythromycin Base] General Stated Complaint: HEALTHCARE NETWORK CONSULTANT OSMAR: 4 Review of Systems Narrative: see HPI Exam Narrative Exam Narrative: General: Alert, well appearing, well nourished, in no acute distress. Head: Normocephalic, atraumatic Neck: Trachea midline, ?Neck supple. Cardiac: ?RRR, no murmurs appreciated Resp: No respiratory distress. CTAB. Abd: ?Soft, non-distended, nontender : ?No suprapubic tenderness. External genital exam with no vaginal discharge. No external hemorrhoids. Small tender ~0.5cm bartholins cyst on right of introitus at 7 o'clock. Palpable tender, indurated area to left of vagina and anus at least 3cm diameter. Extremities: ?No deformities.? No peripheral edema. Neurologic: GCS 15. ? Moves all extremities freely against gravity Course Vital Signs Vital signs: Vital Signs Temperature 36.7 C 10/03/23 04:58 Pulse 78 10/03/23 04:58 Respiratory Rate 16 10/03/23 04:58 Blood Pressure 149/76 H 10/03/23 04:58 Pulse Oximetry 99 10/03/23 04:58 Temperature 36.7 C 10/03/23 04:58 Pulse 78 10/03/23 04:58 Respiratory Rate 16 10/03/23 04:58 Respiratory Effort Normal 10/03/23 05:02 Blood Pressure 149/76 H 10/03/23 04:58 Pulse Oximetry 99 10/03/23 04:58 Oxygen Delivery Method Room Air 10/03/23 04:58 Oxygen Flow Rate 0 10/03/23 04:58 Pain Level 2 10/03/23 04:58 Procedures Abscess I/D Site: Bartholin's Gland Side (if applicable): Right Technique: Incised with #11 Blade Amount of fluid expressed (mL): 1 Irrigation: No Packing used?: None Medical Decision Making 53yo F with hx HTN, GERD, presenting for perineum pain and swelling over the past two days. Systemically well with no fevers. No vaginal discharge or bleeding. Vital signs reassuring on arrival. On exam she has a small tender bartholin's gland on the right as well as a large indurated area to the left of the vagina/anus. Shared decision making regarding lidocaine injection vs single stab incision for right-sided lesion; pt elected to pursue without lidocaine injection and tolerated well, I&D without complication, small amount or purulent fluid expressed. Unclear how deep left lesion is, abscess vs cellulitis, not unequivocally amenable to bedside drainage on exam. Exam not consistent with necrotizing soft tissue infection. Will evaluate further for abscess vs cellulitis and perirectal vs perianal vs perivaginal with CT abd pelvis. Tylenol and toradol ordered for pain (patient declined). Labs reviewed as below, CBC reassuring with no leukocytosis or anemia, CMP with no actionable abnormalities, CRP mildly elevated at 1.5. LRINEC score 0. Signed out to oncoming physician, plan to followup CT; may need surgery consult vs bedside drainage vs home with antibiotics pending results. Lab Data Lab results reviewed: Yes I reviewed the patient's lab results. Labs: Laboratory Tests Range/Units 10/03/23 10/03/23 05:20 05:20 WBC (4.4-10.8) 10^3/uL 6.89 RBC (3.93-5.22) 10^6/uL 4.44 Hgb (11.2-15.7) g/dL 14.3 Hct (36.0-46.0) % 42.2 MCV (80-95) fL 95 MCH (27.0-33.0) pg 32.2 MCHC (32.0-36.0) % 33.9 RDW (11.7-14.6) % 12.0 Plt Count (130-400) 10^3/uL 368 MPV (8.0-11.0) fL 9.6 Immature Gran % % 0.3 Neutrophils % % 53.8 Lymphocytes % % 32.2 Monocytes % % 9.4 Eosinophils % % 3.6 Basophils % % 0.7 Nucleated RBC % (0.0-0.3) % 0.0 Absolute Neutrophils (1.2-6.7) 10^3/uL 3.70 Absolute Lymphocytes (1.2-3.4) 10^3/uL 2.22 Absolute Monocytes (0.1-0.8) 10^3/uL 0.65 Absolute Eosinophils (0.0-0.7) 10^3/uL 0.25 Absolute Basophils (0.0-0.2) 10^3/uL 0.05 Sodium (136-145) mmol/L 143 Potassium (3.5-5.1) mmol/L 3.6 Chloride (98-107) mmol/L 108 H Carbon Dioxide (21.0-32.0) mmol/L 27.2 Anion Gap (3-11) mmol/L 7.8 BUN (7-18) mg/dL 15 Creatinine (0.55-1.02) mg/dL 0.9 Est GFR (CKD-EPI 2020) (mL/min/1.73m2) 77.40 Glucose (74-106) mg/dL 109 H Calcium (8.5-10.1) mg/dL 8.8 Total Bilirubin (0.2-1.0) mg/dL 0.45 AST (15-37) U/L 12 L ALT (14-59) U/L 24 Alkaline Phosphatase (46-116) U/L 65 C-Reactive Protein (<or=0.5) mg/dL 1.52 H Cancelled Total Protein (6.4-8.2) g/dL 7.6 Albumin (3.4-5.0) g/dL 3.5 Quality:SDOH Health Related Social Needs: No Data to Display PFSH All Active Problems (Updated 08/24/23 @ 10:15 by Mark Shen NP) Hyperglycemia (Acute) Arthralgia (Acute) Behavior concern (Acute) Nicotine dependence due to vaping tobacco product (Acute) Nocturnal leg cramps (Chronic) managing with diet. Abdominal pain (Acute) Benign cyst of left kidney (Acute) Muscular abdominal pain in left flank (Acute) Diverticula, colon (Acute) Dizziness (Acute) Hypertension (Chronic) GERD (gastroesophageal reflux disease) (Chronic) Internal bleeding hemorrhoids (Acute) Non-alcoholic fatty liver disease (Acute) Fatigue (Acute) Medical History Sprain of medial collateral ligament of left knee Surgical History S/P appendectomy S/P hemorrhoidectomy (09/27/22) Status post tubal ligation Social History (Updated 08/27/23 @ 14:02 by Elidia Pozo) Smoking/Tobacco Use Status: Current every day Tobacco Type: e-cigarettes Tobacco: How many years used: 30 Quit status: not considering quitting Second Hand Exposure: Yes Smoking risk assessment performed?: Yes Alcohol Intake: current Alcohol Intake frequency: holidays/special occasions only Alcohol type: hard liquor Drug use: Daily Substance use type: marijuana Counseling given: No Details: last use today, 05/15/22 at 0200 Caregiver/Support person: No Household members: none Housing: apartment Number of Children: 2 Communication Needs: None Education Level: college Details: 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 Pets and animals: Yes Pets and animals: other Details: Fish Sexually active: Yes Do you think of yourself as: straight/heterosexual Current gender identity: female What is your relationship status?: don't know How often do you talk on the phone with friends or family?: never How often do you get together with friends or relatives?: three or more times per week Do you belong to any clubs or organized social groups?: no Panel score (0-1 are the most socially isolated patients): 1 What type of physical activity do you participate in: none Glendy/Sabianist: Other Special glendy needs: No Seatbelt use: always Drive intox or ride w/intox route driver: No Do you feel safe at home: Yes Do you feel safe in your relationship?: Yes Female Reproductive History Menstrual Duration of menses: 8-10 days control method: permanent sterilization History History 2 Para 2 Hx # Term Pregnancies 2 Multiple births Hx # Pregnancies Ectopic pregnancies AB induced Hx Number of Living Children 2 AB spontaneous
[2023-10-03 05:22] LABS: Abs Immature Grans 0.02 10^3/uL (0.0-0.06); Absolute Basophil Count 0.05 10^3/uL (0.0-0.2); Absolute Eosinophil Count 0.25 10^3/uL (0.0-0.7); Absolute Lymphocyte Count 2.22 10^3/uL (1.2-3.4); Absolute Monocyte Count 0.65 10^3/uL (0.1-0.8); Basophils % 0.7 %; Eosinophils % 3.6 %; HCT 42.2 % (36.0-46.0); HGB 14.3 g/dL (11.2-15.7); Immature Grans % 0.3 %; Lymphocytes % 32.2 %; MCH 32.2 pg (27.0-33.0); MCHC 33.9 % (32.0-36.0); MCV 95 fL (80-95); MPV 9.6 fL (8.0-11.0); Monocytes % 9.4 %; Neutrophils % 53.8 %; Platelet Count 368 10^3/uL (130-400); RBC 4.44 10^6/uL (3.93-5.22); RDW-SD 42.4 fL; WBC 6.89 10^3/uL (4.4-10.8)
[2023-10-03 05:38] LABS: ALT 24 U/L (14-59); AST 12 U/L (15-37); Albumin 3.5 g/dL (3.4-5.0); Alkaline Phosphatase 65 U/L (46-116); Anion Gap 7.8 mmol/L (3-11); BUN 15 mg/dL (7-18); Bilirubin, Total 0.45 mg/dL (0.2-1.0); C-Reactive Protein 1.52 mg/dL (<or=0.5); CO2 27.2 mmol/L (21.0-32.0); CREATININE 0.9 mg/dL (0.55-1.02); Calcium 8.8 mg/dL (8.5-10.1); Chloride 108 mmol/L (98-107); Glucose 109 mg/dL (74-106); Potassium 3.6 mmol/L (3.5-5.1); Sodium 143 mmol/L (136-145); Total Protein 7.6 g/dL (6.4-8.2)
[2023-10-03] MEDS: Normal Saline - Diluent 50 ML VIAL IJ (06:12)
[2023-10-03] MEDS: Omnipaque 350 MG/ML 100 ML BTL IJ (06:12)
--- NOTE | 2023-10-03 07:53 | DI.VRAD_ITS ---
PROCEDURE INFORMATION: Exam: CT Abdomen And Pelvis With Contrast Exam date and time: 10/03/2023 6:03 AM Age: 53 years old Clinical indication: Pain; Other: L perineal swelling, inferior to vaginal opening TECHNIQUE: Imaging protocol: Computed tomography of the abdomen and pelvis with contrast. Contrast material: OMNI 350; Contrast volume: 100 ml; Contrast route: INTRAVENOUS (IV); COMPARISON: CT ABDOMEN PELVIS W 03/09/2022 9:40 AM FINDINGS: Lungs: Lung bases are clear. Liver: Normal. No mass. Gallbladder and bile ducts: Normal. No calcified stones. No ductal dilation. Pancreas: Normal. No ductal dilation. Spleen: Normal. No splenomegaly. Adrenal glands: Normal. No mass. Kidneys and ureters: Kidneys enhance symmetrically. No stones or hydronephrosis. There is a left renal upper pole 2.9 cm cyst. Stomach and bowel: Colonic diverticulosis. Unremarkable small bowel. Normal stomach. Appendix: Appendix is not identified. No secondary signs appendicitis. Intraperitoneal space: Unremarkable. No free air. No significant fluid collection. Vasculature: Mild atherosclerotic disease. No aortic aneurysm. Lymph nodes: No septations or soft tissue enhancement node is noted within this finding. No pathologic sized adenopathy. Urinary bladder: Bladder is unremarkable. Reproductive: Uterus is unremarkable. Unremarkable left ovary. Right adnexal 9.5 x 7.8 cm round cystic finding which is increased in size from the prior study which time it measured 7 x 6.9 cm. Small posterior uterine myoma suspected in the lower segment. Bones/joints: Degenerative changes in the spine. Grade 1 anterolisthesis of L5 on S1 and bilateral L5 pars which appears stable. Mild superior endplate compression fracture of T10 is unchanged. Soft tissues: There is a 3.4 x 5.7 x 3.4 cm ovoid soft tissue density finding in the left perineum abutting the introitus . This may represent a hematoma or possibly infected Bartholin's gland cyst although no obvious cyst was seen on the prior CT. IMPRESSION: 3.4 x 5.7 x 3.4 cm ovoid soft tissue density finding in the left perineum abutting the introitus which may represent an infected Bartholin's gland cyst versus hematoma. Mild increase in size of the previously seen right adnexal cystic finding, likely a cyst given its minimal increase in size over 2 years. Consider further evaluation with nonemergent pelvic ultrasound. Colonic diverticulosis. Dictated and Authenticated by: Fay Vegas MD. Ordering:CHARLOTTE Aponte MD
--- NOTE | 2023-10-03 08:08 | ED.PROG_ITS ---
Date of service: 10/03/23 Time of Service: 08:08 Medical Decision Making Patient signed out to me pending CT read.CT does show a 3 x 5 x 3 cm ovoid density in the left perineum abutting the introitus which they say could be a cyst versus hematoma. She also has a known right cyst in her ovary. Has no right-sided pelvic pain so doubt torsion. On reassessment patient is very upset stating that no blood work is ever drawn on her. I advised that as I was not here while this was being done that standard practice to draw labs when her IV was placed, but she still is argumentative the blood work was not done. I discussed the results with the patient and recommended I examine her and attempt I&D or consult DIRECTOR OF NEUROLOGY, patient declines and is requesting discharge and states she will follow-up with women's wellness on her own. She has decision-making capacity understands the worsening possible abscess could lead to worsening infection and need for further serious surgical interventions. She is willing to accept the risks of this and potential for needing rehab and and still does not want to stay. I did discuss that she can return if she changes her mind, I will have her follow-up with [facility] and start her on doxy and augmentin given she is allergic to sulfa. Quality:SDOH Health Related Social Needs: No Data to Display Sign Out Sign Out Data: Sign Out Comment: pain & swelling in perineum; labs reassuring, rt sided bartholin's abcess drained, left sided perivaginal/anal induration and tenderness. Pending CT. May need state highway police officer or gen surg for drainge pending results Last updated by Fay Lei MD at 10/03/23 07:39 Discharge Plan Disposition Patient Disposition: Home Condition: Stable Discharge Details Clinical Impression: Perineal cyst in female Primary Care Provider: Mark Weems ED Provider: Elfego Case Springer Meds and New Rx's Prescriptions: New doxycycline hyclate 100 mg tablet 100 mg PO BID Qty: 14 0RF amoxicillin-pot clavulanate 875-125 mg tablet 1 tab PO BID Qty: 14 0RF Continued potassium chloride 20 mEq tablet extended release 20 meq PO DAILY Qty: 90 3RF pantoprazole 40 mg tablet,delayed release (DR/EC) 40 mg PO BID Qty: 180 3RF acetaminophen [Tylenol] 325 MG tablet 325 mg PO PRN nifedipine 90 mg tablet extended release 90 mg PO DAILY Qty: 90 3RF lisinopril 40 mg tablet 40 mg PO DAILY Qty: 90 3RF diphenhydramine HCl 25 mg capsule 50 mg PO DAILY PRN (Reason: allergic symptoms) Patient Comments: allergies Discharge Instructions Additional Instructions: Follow-up with women's wellness as soon as possible Take the antibiotics as prescribed If you feel more ill, have severe worsening pain or new symptoms such as persistent vomiting return to the emergency department for reevaluation
--- NOTE | 2023-10-10 09:22 | NUR.NOTE ---
Accessed chart to see if there is an EKG order on this patient and to see what time the patient was received in the ED. Nursing Note:
== END 2023-10-03 08:18 | disposition home or self-care (01) ==
PROVIDERS: Student in an Organized Health Care Education/Training Program; Emergency Provider Emergency Medicine; PCP Nurse Practitioner Family
DX: N75.0 Cyst of Bartholin's gland (principal); I10 Essential (primary) hypertension; F17.290 Nicotine dependence, other tobacco product, uncomplicated
CPT/HCPCS: 00123; 36415; 56420; 80053; 99285; 74177; 85025; 86140; J3490

== ENCOUNTER 2023-10-21 03:18 | Outpatient (CLI) | payer BC, SELFPAY ==
[2023-10-22 09:17] LABS: CEA 0.6 ng/mL (See Note)
[2023-10-22 10:50] LABS: CA 125 9 U/mL (<30)
[2023-10-30 15:47] LABS: CA 19-9 36 U/mL (<35)
== END 2023-10-21 03:19 | disposition home or self-care (01) ==
LOC: LBO 03:18
PROVIDERS: PCP Nurse Practitioner Family; Visit Provider Obstetrics & Gynecology
DX: N83.201 Unspecified ovarian cyst, right side (principal)
CPT/HCPCS: 36415; 86304; 82378; 86301

== ENCOUNTER 2023-12-02 02:16 | Outpatient (CLI) | payer BC, SELFPAY ==
--- NOTE | 2023-12-02 | DI.MRI_ITS ---
Exam(s) MR PELVIS WO/W EXAM: MR PELVIS WO/W CLINICAL HISTORY: N94.89 Adnexal mass TECHNIQUE: Multiplanar multisequence MRI of Pelvis was performed. CONTRAST MATERIAL: IV Contrast: 20 mL of Dotarem contrast administered. COMPARISON: CT CT ABDOMEN PELVIS W from 10/03/2023 US US PELVIS from 10/21/2023 FINDINGS: Bones: There is no fracture or contusion pattern. No bone marrow edema is seen. Bilateral L5 spond ylolysis again noted. The SI joints and symphysis pubis are well maintained. Musculotendinous structures: Musculotendinous structures demonstrate no abnormality. Intrapelvic structures: Uterus: Normal size. Normal endometrial thickness. Simple cyst measuring 10 x 8.5 by 9.2 cm. No septations. No nodularity along wall. There is no evidence of suspicious enhancement. Sigmoid diverticulosis. Urinary bladder appears normal. Left ovary appears normal. Soft tissues: 4.9 x 3.9 by 3.9 centimeter mixed signal collection in the right labia which may repres ent a Bartholin's gland cyst. There is some mild enhancement in the surrounding tissue which could i ndicate superimposed infection. This was not noted on the prior CT. The abnormality on the prior ex am was on the contralateral, left side. There is a tiny residual cyst stone measuring 12 millimeter s on the left. IMPRESSION: 10 centimeter simple cyst of the right ovary. New 4.9 centimeter mixed echogenicity nonenhancing collection in the right labia could represent infe cted Bartholin gland cyst. A 12 millimeter related residual cyst is seen on the left side. DATA REPOSITORY:
[2023-12-02] MEDS: Normal Saline Flush 10 ML SYR IVP (13:27)
[2023-12-02] MEDS: Gadoterate meglumine 20 ML SYRINGE IVP (13:28)
== END 2023-12-02 02:36 ==
LOC: DI 02:16
PROVIDERS: PCP Nurse Practitioner Family; Visit Provider Obstetrics & Gynecology Gynecologic Oncology
DX: N83.291 Other ovarian cyst, right side (principal)
CPT/HCPCS: 72197

== ENCOUNTER 2023-12-24 07:49 | Emergency (ER) | payer BC, SELFPAY ==
[2023-12-24 07:50] VITALS: BP 158/69; PULSE 66; RESP 16; TEMP 36.1; O2SAT 100
--- NOTE | 2023-12-24 08:00 | DI.CT_ITS ---
Exam(s) CT ABDOMEN PELVIS W EXAM: CT ABDOMEN PELVIS W CLINICAL HISTORY: left sided abdominal pain s/p oopherectomy. TECHNIQUE: Imaging Protocol: Axial computed tomography images with coronal and sagittal reformatted images were created and reviewed CONTRAST MATERIAL: Intravenous: Omnipaque 350 Contrast volume:100 ml Oral: no COMPARISON: CT CT ABDOMEN PELVIS W from 10/03/2023 FINDINGS: ABDOMEN and PELVIS: Lung Bases: No acute findings. Liver: Normal density. No suspicious mass. Gallbladder and biliary tract: No radiodense calculus. No biliary dilation. Pancreas: Normal density. No abnormal calcifications or inflammatory process. No evidence of mass. Spleen: Normal. Kidneys: Normal size, contour and axis. No radiodense stones. No obstructive uropathy. Left renal c yst again noted. No suspicious masses seen. Adrenal glands: No masses seen. Vasculature: Abdominal aorta non-dilated. Soft tissues: Some stranding in the soft tissues of the umbilicus like likely secondary to recent noemí ozzy. Small air bubble. No abscess. Bladder: No gross wall thickening. No calculi.No focal mass. Bowel: No obstruction. Diverticulosis. No bowel wall thickening. Appendix not seen. Peritoneal cavity: No ascites. No focal collection. No mesenteric inflammatory response. Bones: Degenerative disc changes at L4-5 and L5-S1. Bilateral L5 pars defects. Reproductive organs: Status post resection of the right ovary. There is no residual cyst, evidence o f abscess or fluid. The uterus and left ovary are unremarkable. Lymph nodes: No pathologically enlarged lymph nodes. IMPRESSION:: Status post right oophorectomy. No evidence of abscess or fluid collection. Periumbil ical soft tissue stranding is consistent with recent surgery. RADIATION DOSE DELIVERED: 978.93mGy.cm Total DLP DATA REPOSITORY: All CT scans at this facility are submitted to the National Radiology Data Registry (NRDR) Dose Index Registry (DIR) with the [employer] (ACR). RADIATION OPTIMIZATION: All CT scans at this facility use at least one of these dose optimization te chniques: automated exposure control; mA and/or kV adjustment per patient size (includes targeted exa ms where dose is matched to clinical indication); or iterative reconstruction.
[2023-12-24 08:02] VITALS: BP 158/69; PULSE 66; RESP 16; TEMP 36.1; O2SAT 100
--- NOTE | 2023-12-24 08:03 | W.ED.GENAD ---
Discharge Plan Disposition Patient Disposition: Home Condition: Stable Discharge Details Clinical Impression: Abdominal pain Primary Care Provider: Mark Weems ED Provider: Elfego Case Home Meds and New Rx's Prescriptions: Continued potassium chloride 20 mEq tablet extended release 20 meq PO DAILY Qty: 90 3RF Calcium 600 + D(3) 600 mg-5 mcg (200 unit) capsule 1 cap PO DAILY pantoprazole 40 mg tablet,delayed release (DR/EC) 40 mg PO BID Qty: 180 3RF acetaminophen [Tylenol] 325 MG tablet 325 mg PO PRN nifedipine 90 mg tablet extended release 90 mg PO DAILY Qty: 90 3RF lisinopril 40 mg tablet 40 mg PO DAILY Qty: 90 3RF diphenhydramine HCl 25 mg capsule 50 mg PO DAILY PRN (Reason: allergic symptoms) Patient Comments: allergies Discharge Instructions Additional Instructions: Your CAT scan and lab work did not show any concerning findings at this time Follow-up as scheduled with your surgeon If you feel more ill or have new symptoms such as persistent vomiting or high fevers return to the emergency department HPI General Mode of arrival: ambulatory. Date/Time Provider Initiated Documentation: 12/24/23 07:49. Limitations to Documentation: no limitations. Information obtained by: patient. History of Present Illness 53 year old F presents to the emergency department with the chief complaint of left sided abdominal pain/burning, described as moderate, Patient started experiencing this week(s) (1) and it has been constant. No relieving factors improve symptom(s), No exacerbating factors reported . Patient notes no other symptoms.; denies chest pain, fever/chills and shortness of breath. Patient did receive the following treatments prior to arrival, none Related Data Home Medications ?Medication ?Instructions ?Recorded ?Confirmed acetaminophen 325 mg tablet 325 mg PO PRN 10/23/17 12/24/23 (Tylenol) diphenhydramine HCl 25 mg capsule 50 mg PO DAILY PRN allergic 01/04/21 12/24/23 symptoms pantoprazole 40 mg tablet,delayed 40 mg PO BID #180 tabs 01/01/23 12/24/23 release potassium chloride 20 mEq 20 meq PO DAILY #90 tabs 01/08/23 12/24/23 tablet,extended release nifedipine 90 mg tablet,extended 90 mg PO DAILY #90 tabs 03/15/24 09/10/24 release lisinopril 40 mg tablet 40 mg PO DAILY #90 tabs 08/09/23 12/24/23 calcium carbonate 600 mg-vitamin 1 cap PO DAILY 10/15/23 12/24/23 D3 5 mcg (200 unit) capsule (Calcium 600 + D(3)) Previous Rx's ?Medication ?Instructions ?Recorded pantoprazole 40 mg tablet,delayed 40 mg PO BID #180 tabs 01/01/23 release potassium chloride 20 mEq 20 meq PO DAILY #90 tabs 01/08/23 tablet,extended release nifedipine 90 mg tablet,extended 90 mg PO DAILY #90 tabs 06/28/23 release lisinopril 40 mg tablet 40 mg PO DAILY #90 tabs 08/09/23 Allergies Allergy/AdvReac Type Severity Reaction Status Date / Time Sulfa (Sulfonamide Allergy Severe Anaphylaxsi Verified 12/24/23 07:55 Antibiotics) s erythromycin base Allergy Intermediate Hives Verified 12/24/23 07:55 (Erythromycin Base) General Stated Complaint: GenMedical OSMAR: 3 Exam Const General: no acute distress Orientation: alert [facility] Head: normal to inspection Ears: external ears normal General nose exam: external nose normal Mouth: moist mucous membranes Eyes General: appearance normal, both eyes and all related structures Neck Neck: normal visual inspection Resp Effort & Inspection: normal respiratory effort and able to speak in complete sentences Cardio Jugular venous pressure: no JVD Rate: regular rate GI Palpation: soft, not firm, no guarding and tender Skin General skin exam: no rashes or lesions noted Neuro General: patient alert and patient oriented x3 Extrem General: normal to inspection Psych Mental Status: mental status grossly normal Course Vital Signs Vital signs: Vital Signs Temperature 36.1 C L 12/24/23 07:50 Pulse 66 12/24/23 07:50 Respiratory Rate 16 12/24/23 07:50 Blood Pressure 158/69 H 12/24/23 07:50 Pulse Oximetry 100 12/24/23 07:50 Temperature 36.1 C L 12/24/23 08:02 Temperature Source Temporal Artery Scan 12/24/23 08:02 Pulse 66 12/24/23 08:02 Respiratory Rate 16 12/24/23 08:02 Respiratory Effort Normal 12/24/23 07:54 Blood Pressure 158/69 H 12/24/23 08:02 Blood Pressure Position Sitting 12/24/23 08:02 Pulse Oximetry 100 12/24/23 08:02 Oxygen Delivery Method Room Air 12/24/23 08:02 Oxygen Flow Rate 0 12/24/23 08:02 Pain Level 3 12/24/23 08:02 Comment pain increases to 7 when standing 12/24/23 08:02 Medical Decision Making 53-year-old female who had a surgery at [facility] last Saturday to remove both her ovaries and fallopian tubes and states that it went uncomplicated. She says that since the surgery she has had left-sided abdominal pain and burning sensation. She denies any vomiting though has had some intermittent nausea, no fevers. She is alert and oriented x 4 and arrival. She has well-healing laparoscopic surgical sites. She does have some tenderness in the left lower surgical site without any erythema or warmth. There is no palpable abscess or mass. Suspect this could be just a routine postop pain but will obtain CT to exclude entities such as a postop abscess. Labs and imaging unremarkable, no abscess or signs of infection. She is stable, she will follow-up as scheduled on Saturday with her surgeons and return precautions given Differential Diagnosis Differential Diagnosis: abscess, post op pain Medical Records Medical records reviewed: Yes I reviewed the patient's medical records. Imaging Data Radiologic Study: Attestation: I personally reviewed and interpreted this imaging study as follows: Imaging: CT Scan Radiologist's impression: Patient Name: Kelly Acuña Unit #: [id number] Loc: ER Ordering Provider: Elfego Case M.D. Status: [facility] ER Primary Care Provider: Mark Weems NP Date of Exam: 12/24/23 Sex: F : 1970 Age: 53 Exam(s) a CT:CT abdomen & pelvis w Exam(s) CT ABDOMEN PELVIS W EXAM: CT ABDOMEN PELVIS W CLINICAL HISTORY: left sided abdominal pain s/p oopherectomy. TECHNIQUE: Imaging Protocol: Axial computed tomography images with coronal and sagittal reformatted images were created and reviewed CONTRAST MATERIAL: Intravenous: Omnipaque 350 Contrast volume:100 ml Oral: no COMPARISON: CT CT ABDOMEN PELVIS W from 10/03/2023 FINDINGS: ABDOMEN and PELVIS: Lung Bases: No acute findings. Liver: Normal density. No suspicious mass. Gallbladder and biliary tract: No radiodense calculus. No biliary dilation. Pancreas: Normal density. No abnormal calcifications or inflammatory process. No evidence of mass. Spleen: Normal. Kidneys: Normal size, contour and axis. No radiodense stones. No obstructive uropathy. Left renal cyst again noted. No suspicious masses seen. Adrenal glands: No masses seen. Vasculature: Abdominal aorta non-dilated. Soft tissues: Some stranding in the soft tissues of the umbilicus like likely secondary to recent surgery. Small air bubble. No abscess. Bladder: No gross wall thickening. No calculi.No focal mass. Bowel: No obstruction. Diverticulosis. No bowel wall thickening. Appendix not seen. Peritoneal cavity: No ascites. No focal collection. No mesenteric inflammatory response. Bones: Degenerative disc changes at L4-5 and L5-S1. Bilateral L5 pars defects. Reproductive organs: Status post resection of the right ovary. There is no residual cyst, evidence of abscess or fluid. The uterus and left ovary are unremarkable. Lymph nodes: No pathologically enlarged lymph nodes. IMPRESSION:: Status post right oophorectomy. No evidence of abscess or fluid collection. Periumbilical soft tissue stranding is consistent with recent surgery. Lab Data Lab results reviewed: Yes I reviewed the patient's lab results. Quality:SDOH Health Related Social Needs: No Data to Display PFSH All Active Problems (Updated 12/24/23 @ 09:56 by Elfego Case MD) Abdominal pain (Acute) Right ovarian cyst (Acute) Hyperglycemia (Acute) Arthralgia (Acute) Nicotine dependence due to vaping tobacco product (Acute) Nocturnal leg cramps (Chronic) managing with diet. Abdominal pain (Acute) Benign cyst of left kidney (Acute) Muscular abdominal pain in left flank (Acute) Diverticula, colon (Acute) Dizziness (Acute) Hypertension (Chronic) GERD (gastroesophageal reflux disease) (Chronic) Internal bleeding hemorrhoids (Acute) Non-alcoholic fatty liver disease (Acute) Fatigue (Acute) Medical History (Updated 12/24/23 @ 09:56 by Elfego Case MD) Sprain of medial collateral ligament of left knee Surgical History S/P hemorrhoidectomy (09/27/22) S/P appendectomy Status post tubal ligation Family History (Updated 10/15/23 @ 11:32 by Nevin Archer RN) Other Diabetes Heart disease Hypertension Uterine cancer Social History (Updated 08/27/23 @ 14:02 by Elidia Pozo) Smoking/Tobacco Use Status: Current every day Tobacco Type: e-cigarettes Tobacco: How many years used: 30 Quit status: not considering quitting Second Hand Exposure: Yes Smoking risk assessment performed?: Yes Alcohol Intake: current Alcohol Intake frequency: holidays/special occasions only Alcohol type: hard liquor Drug use: Daily Substance use type: marijuana Counseling given: No Details: last use today, 05/15/22 at 0200 Caregiver/Support person: No Household members: none Housing: apartment Number of Children: 2 Communication Needs: None Education Level: college Details: 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 Pets and animals: Yes Pets and animals: other Details: Fish Sexually active: Yes Do you think of yourself as: straight/heterosexual Current gender identity: female What is your relationship status?: don't know How often do you talk on the phone with friends or family?: never How often do you get together with friends or relatives?: three or more times per week Do you belong to any clubs or organized social groups?: no Panel score (0-1 are the most socially isolated patients): 1 What type of physical activity do you participate in: none Glendy/Evangelical: Other Special glendy needs: No Seatbelt use: always Drive intox or ride w/intox local company intermodal truck driver: No Do you feel safe at home: Yes Do you feel safe in your relationship?: Yes Female Reproductive History Menstrual Duration of menses: 8-10 days control method: permanent sterilization History History 2 Para 2 Hx # Term Pregnancies 2 Multiple births Hx # Pregnancies Ectopic pregnancies AB induced Hx Number of Living Children 2 AB spontaneous Past Pregnancies Del. Date GA/Weeks # Preg Succ Route Wgt Sex Labor Lgth Anesthesia Location Prov Complic 03/20/90 40 Yes vaginal 3997.283 g Male [facility] 11/23/97 40 Yes vaginal 2920.001 g Female [facility]
[2023-12-24 08:31] LABS: Bilirubin Small (Negative); Blood Small (Negative); Clarity Sl Cloudy (Clear); Glucose Negative (Negative); Ketones Trace mg/dL (Negative); Leukocyte Esterase Moderate (Negative); Nitrite Negative (Negative); Specific Gravity 1.025 (1.005-1.025); Urobilinogen 0.2 mg/dL (Up to 0.2)
[2023-12-24 08:36] VITALS: RESP 14
[2023-12-24 08:37] LABS: Abs Immature Grans 0.02 10^3/uL (0.0-0.06); Absolute Basophil Count 0.05 10^3/uL (0.0-0.2); Absolute Eosinophil Count 0.23 10^3/uL (0.0-0.7); Absolute Lymphocyte Count 2.38 10^3/uL (1.2-3.4); Absolute Monocyte Count 0.51 10^3/uL (0.1-0.8); Absolute Neutrophil Count 5.33 10^3/uL (1.2-6.7); Basophils % 0.6 %; Eosinophils % 2.7 %; HCT 38.9 % (36.0-46.0); HGB 13.1 g/dL (11.2-15.7); Immature Grans % 0.2 %; Lymphocytes % 27.9 %; MCH 32.8 pg (27.0-33.0); MCHC 33.7 % (32.0-36.0); MCV 97 fL (80-95); MPV 9.4 fL (8.0-11.0); Neutrophils % 62.6 %; Platelet Count 360 10^3/uL (130-400); RDW 12.4 % (11.7-14.6); RDW-SD 44.4 fL; WBC 8.52 10^3/uL (4.4-10.8)
[2023-12-24 08:40] LABS: Bacteria Few HPF (Negative); C & S Indicated? No/Sq. Contamination; Casts 0-2 Hyaline LPF (Negative); Crystals Negative HPF (Negative); Epithelial Cells Many HPF (Negative); Mucus Trace (Negative); WBC 20-50 HPF (0-5)
[2023-12-24 08:54] LABS: ALT 17 U/L (14-59); AST 12 U/L (15-37); Albumin 3.2 g/dL (3.4-5.0); Alkaline Phosphatase 61 U/L (46-116); Anion Gap 6.8 mmol/L (3-11); BUN 10 mg/dL (7-18); Bilirubin, Total 0.28 mg/dL (0.2-1.0); CO2 30.2 mmol/L (21.0-32.0); CREATININE 0.7 mg/dL (0.55-1.02); Calcium 8.8 mg/dL (8.5-10.1); Chloride 106 mmol/L (98-107); Estimated GFR 104.65 (mL/min/1.73m2); Glucose 105 mg/dL (74-106); Magnesium 1.8 mg/dL (1.8-2.4); Potassium 3.5 mmol/L (3.5-5.1); Sodium 143 mmol/L (136-145); Total Protein 7.4 g/dL (6.4-8.2)
[2023-12-24 09:12] LABS: Procalcitonin < 0.1 ng/mL
[2023-12-24] MEDS: Omnipaque 350 MG/ML 500 ML BTL-Imaging package 100 ML IJ (09:19)
[2023-12-24] MEDS: Normal Saline - Diluent 50 ML VIAL IJ (09:20)
[2023-12-24] MEDS: Normal Saline Flush 10 ML SYR IVP (09:20)
== END 2023-12-24 10:09 | disposition home or self-care (01) ==
PROVIDERS: Emergency Provider Emergency Medicine; PCP Nurse Practitioner Family
DX: R10.2 Pelvic and perineal pain (principal); Z98.890 Other specified postprocedural states
CPT/HCPCS: 36415; 80053; 84145; 99285; 74177; 81003; 81015; 83735; 85025; 99284

== ENCOUNTER 2024-09-30 01:59 | Outpatient (CLI) | payer BC, SELFPAY ==
--- NOTE | 2024-09-30 12:30 | DI.US_ITS ---
APPROVED REPORT EXAM: Comprehensive 2D, Doppler, and color-flow Echocardiogram Patient Location: Out-Patient Manager Decision Support: Juany Alejandro RDCS (AE) Indications: Worsening edema, SOB on exertion Other Information Study Quality: Adequate Conclusion Normal left ventricular wall thickness and chamber size. Ejection fraction is 58%. Wall motion is normal Normal right ventricular size and function Both atria are normal in size Incidental finding of an atrial septal aneurysm There are no structural valvular abnormalities Trace to mild mitral regurgitation Mild tricuspid regurgitation. Normal estimated right ventricular systolic pressure 24 mmHg Wall motion Left Ventricle The left ventricle is normal size. The left ventricular systolic function is normal. The left ventricular ejection fraction is within the normal range. There is normal left ventricular wall thickness. There is normal LV segmental wall motion. There is no ventricular septal defect visualized. LVEF is 58%. Right Ventricle The right ventricle is normal size. The right ventricular systolic function is normal. Atria The left atrium size is normal. The right atrium size is normal. Atrial septal aneurysm is present. Aortic Valve The aortic valve is normal in structure. Aortic valve is trileaflet. There is no aortic valvular stenosis. No aortic regurgitation is present. Mitral Valve The mitral valve is normal in structure. No evidence of mitral valve stenosis. Trace to mild mitral regurgitation. Tricuspid Valve The tricuspid valve is normal in structure. There is no tricuspid valve stenosis. Mild tricuspid regurgitation. The RVSP is 24.1 mmHg. Pulmonic Valve The pulmonary valve is normal in structure. There is no pulmonic valvular stenosis. Trace to mild pulmonic regurgitation. Great Vessels The aortic root is normal in size. The ascending aorta is normal in size. Aortic arch is normal in caliber. IVC is normal in size and collapses >50% with inspiration. Pericardium There is no pericardial effusion. 2D Dimensions IVSD d PLAX 1.03 cm F: 0.6-1.0 Ao Root d 3.05 cm F: 2.7 - 3.3 LVPW d PLAX 1.00 cm F: 0.6 - 1.0 Ao Asc Diam d 3.14 cm F: 2.3 - 3.1 LVID d PLAX 4.80 cm F: 3.8 - 5.2 LVDs 3.33 cm F: 2.2 - 3.5 LV EF Teichholz 57.2 % FS 30.02 % LV EDV (Teich) 105.1 mL LV ESV (Teich) 45.0 mL M-Mode TAPSE 2.65 cm (M/F) >1.7 Auto EF LV EDV A4C 119.3 mL LV EDV A2C 116.2 mL LV EDV BP 118.3 mL LV ESV A4C 49.3 mL LV ESV A2C 48.7 mL LV ESV BP 50.2 mL LVEF(%) A4C 58.6 % LVEF(%) A2C 58.1 % LVEF(%) BP 57.6 % LV SV A4C 69.9 ml LV SV A2C 67.5 ml LV SV BP 68.1 ml LV CO A4C 3.7 L/min LV CO A2C 3.8 L/min LV CO BP 3.8 L/min HR A4C 53.26 BPM HR A2C 56.59 BPM LV EDV Index (BP) LA Volume LA Length A4C 5.7 cm LA Length A2C 5.8 cm LA Area A4C s 20.26 cm2 LA Area A2C s 20.48 cm2 LA Vol A4C A-L 60.61 mL LA Vol A2C A-L 61.77 mL LA Vol Biplane A-L 61.3 mL LA Vol/BSA A4C A-L LA Vol/BSA A2C A-L LA Vol/BSA BP A-L 28.5 mL/m2 LA Vol A4C MOD 56.3 mL LA Vol A2C MOD 58.9 mL LA Vol BP MOD 57.4 mL RA Volume RA Area A4C 18.6 cm2 RA ESV A4C (A-L) 53.6mL RA Vol/BSA A4C A-L RA Length A4C 5.5 cm RA ESV A4C (MOD) 50.9mL LV Diastology MV E' medial 0.067 (>0.07 m/s) MV E Vmax 0.92 (0.4-1.3 m/s) MV E/E' MED 13.80 (<14) MV A Vmax 0.80 (0.4-1.3 m/s) MV E' lateral 0.129 (>0.1 m/s) E/A Ratio 1.1 MV E/E' LAT 7.18 (<14) MV E' Average 0.098 m/s MV E/E'(average) 9.45 Aortic Valve AoV Vmax 1.50 m/s LVOT Vmax 1.19 m/s AoV Peak Grad 9.0 mmHg LVOT Peak Grad 5.7 mmHg AoV Area (Vmax) 2.57 cm2 LVOT VTI 0.271 m AoV VTI 0.371 m LVOT Mean Grad 2.9 mmHg AoV Mean Nadir. 1.05 m/s LVOT SV 87.71 mL AoV Mean Grad 5.0 mmHg LVOT Diam s 2.00 cm AoV Area (VTI) 2.36 cm2 AV Regurg Peak Gr. 8.97 mmHg Velocity Ratio 0.79 Mitral Valve MV DT 236 (160-240 msec) MV Vmax TIPS 1.04 m/s MV Mean Grad 1.5 (<2mmHg) MV VTI 0.405 m Pulmonary Valve PV Vmax 1.12 (0.5-1.5 m/s) RVOT Vmax 0.81 m/s PV Peak Grad 5.1 mmHg RVOT Peak Gr. 2.6 mmHg PV Mean Nadir 0.81 m/s RVOT VTI 0.232 m PV Mean Grad 3.0 mmHg RVOT Mean Gr. 1.5 mmHg Tricuspid Valve RA Pressure 3.00 mmHg TR Vmax 2.30 m/s TV S' 0.16 m/s TR Peak Grad 21.1 mmHg RVSP (TR) 24.1 mmHg
== END 2024-09-30 02:19 ==
LOC: DI 01:59
PROVIDERS: PCP Nurse Practitioner Family; Visit Provider Internal Medicine Cardiovascular Disease
DX: R60.9 Edema, unspecified (principal); R06.02 Shortness of breath; I36.1 Nonrheumatic tricuspid (valve) insufficiency
CPT/HCPCS: 93306

== ENCOUNTER 2024-12-23 09:50 | Emergency (ER) | payer BC, SELFPAY ==
[2024-12-23] VITALS (43 sets, daily range): BP systolic 135–211; BP diastolic 56–103; PULSE 49–83; RESP 8–28; TEMP 36.9; O2SAT 92–100
--- NOTE | 2024-12-23 10:15 | RT.EKG_ITS ---
APPROVED REPORT Exam: Resting ECG Reason for Exam: abd pain over 40 Patient Location: E HR:65 bpm ECG Measurements Heart Rate 65 AXIS WA 200 P 41 QRSd 82 QRS 28 QT 442 T 30 QTc 459 Conclusion Sinus rhythm...normal P axis, V-rate 60- 99 No STEMI
[2024-12-23 10:27] LABS: Abs Immature Grans 0.02 10^3/uL (0.0-0.06); HCT 42.4 % (36.0-46.0); HGB 14.7 g/dL (11.2-15.7); Immature Grans % 0.2 %; MCH 31.7 pg (27.0-33.0); MCHC 34.7 % (32.0-36.0); MCV 92 fL (80-95); MPV 10.0 fL (8.0-11.0); Platelet Count 400 10^3/uL (130-400); RBC 4.63 10^6/uL (3.93-5.22); RDW 12.1 % (11.7-14.6); RDW-SD 40.7 fL; WBC 10.47 10^3/uL (4.4-10.8)
[2024-12-23] MEDS: HYDROmorphone 2 MG/ML SYR 1 MG IVP (10:28)
[2024-12-23] MEDS: Normal Saline 1,000 ML 1000 ML IV (10:29)
[2024-12-23] MEDS: Droperidol 5 MG/2 ML VIAL 2.5 MG IVP (10:29)
[2024-12-23 11:22] LABS: ALT 26 U/L (14-59); AST 18 U/L (15-37); Albumin 3.3 g/dL (3.4-5.0); Alkaline Phosphatase 51 U/L (46-116); Anion Gap 13.4 mmol/L (3-11); BUN 13 mg/dL (7-18); Bilirubin, Total 0.7 mg/dL (0.2-1.0); CO2 22.6 mmol/L (21.0-32.0); Calcium 8.4 mg/dL (8.5-10.1); Chloride 106 mmol/L (98-107); Estimated GFR 104.00 (mL/min/1.73m2); Glucose 107 mg/dL (74-106); Magnesium 1.7 mg/dL (1.8-2.4); Sodium 142 mmol/L (136-145); Total Protein 6.8 g/dL (6.4-8.2); Troponin I 5 ng/L (<or=51)
[2024-12-23 11:24] LABS: Potassium 2.9 mmol/L (3.5-5.1)
[2024-12-23 11:31] LABS: Glucose Negative (Negative)
[2024-12-23] MEDS: MAGNESIUM SULFATE 2 GM/50 ML BAG IV_INF (11:49)
[2024-12-23] MEDS: POTASSIUM CHLORIDE 20 MEQ/100 ML BAG 50 MEQ IV_INF ×2 (11:49→14:01)
[2024-12-23] MEDS: Omnipaque 350 MG/ML 100 ML BTL IJ (12:15)
[2024-12-23] MEDS: Normal Saline - Diluent 50 ML VIAL IJ (12:15)
--- NOTE | 2024-12-23 12:15 | DI.CT_ITS ---
Exam(s) CT ABDOMEN PELVIS W EXAM: CT ABDOMEN PELVIS W CLINICAL HISTORY: RLQ pain, hx of multiple ab surgeries. TECHNIQUE: Imaging Protocol: Axial computed tomography images with coronal and sagittal reformatted images were created and reviewed CONTRAST MATERIAL: Intravenous: Omnipaque 350 Contrast volume:100 ml Oral: no COMPARISON: CT CT ABDOMEN PELVIS W from 12/24/2023 FINDINGS: ABDOMEN and PELVIS: Lung Bases: No acute findings. Liver: Normal density. No suspicious mass. Gallbladder and biliary tract: No radiodense calculus. No wall thickening or pericholecystic fluid. No biliary dilation. Pancreas: Normal density. No abnormal calcifications or inflammatory process. No evidence of mass. Spleen: Normal. Kidneys: Normal size, contour and axis. No radiodense stones. No obstructive uropathy. Stable simple left renal cysts. No follow-up recommended. No suspicious masses seen. Adrenal glands: No masses seen. Vasculature: Abdominal aorta non-dilated. Mild atherosclerotic changes. Soft tissues: Mild dehiscence of the anterior abdominal wall at the level of the umbilicus. No corine hernia. Bladder: Nearly empty but unremarkable. Bowel: No obstruction. No bowel wall thickening. Appendix not seen. Suture material is noted at the base of the cecum. Diverticulosis of the descending and sigmoid colon. No evidence of diverticulitis. Peritoneal cavity: No ascites. No focal collection. No mesenteric inflammatory response. No free air. Bones: Bilateral L5 pars defects again noted. Advanced degenerative disc changes at L4-5 and L5-S1. Reproductive organs: Small posterior uterine fibroid. Lymph nodes: No pathologically enlarged lymph nodes. IMPRESSION:: No acute abnormality in the abdomen or pelvis. RADIATION DOSE DELIVERED: 1,176.64mGy.cm Total DLP DATA REPOSITORY: All CT scans at this facility are submitted to the National Radiology Data Registry (NRDR) Dose Index Registry (DIR) with the [employer] (ACR). RADIATION OPTIMIZATION: All CT scans at this facility use at least one of these dose optimization techniques: automated exposure control; mA and/or kV adjustment per patient size (includes targeted exams where dose is matched to clinical indication); or iterative reconstruction.
[2024-12-23] MEDS: Normal Saline Flush 10 ML SYR IVP (12:16)
[2024-12-23 12:37] LABS: Troponin I 7 ng/L (<or=51)
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
[2024-12-23] MEDS: Potassium Chloride 20 MEQ TABCR 40 MEQ PO (13:21)
== END 2024-12-23 16:26 | disposition home or self-care (01) ==
PROVIDERS: Emergency Provider General Practice; PCP Nurse Practitioner Family
DX: R10.31 Right lower quadrant pain (principal); E83.42 Hypomagnesemia; E87.6 Hypokalemia
CPT/HCPCS: 36415; 80053; 93005; 96361; 96365; 96366; 96375; 99285; 74177; 81003; 83605; 83735; 84484; 85025; 93010; 99284; J1171; J1790; J3475; J3480; J3490

== ENCOUNTER 2024-12-26 17:38 | Outpatient (REF) | payer BC, SELFPAY ==
[2024-12-26 18:27] LABS: Anion Gap 7.3 mmol/L (3-11); BUN 10 mg/dL (7-18); CO2 28.7 mmol/L (21.0-32.0); Calcium 9.0 mg/dL (8.5-10.1); Chloride 106 mmol/L (98-107); Estimated GFR 104.00 (mL/min/1.73m2); Glucose 90 mg/dL (74-106); Potassium 3.9 mmol/L (3.5-5.1); Sodium 142 mmol/L (136-145)
== END 2024-12-26 17:39 | disposition home or self-care (01) ==
LOC: LBN 17:38
PROVIDERS: PCP Nurse Practitioner Family; Visit Provider Nurse Practitioner Family
DX: E87.6 Hypokalemia (principal)
CPT/HCPCS: 80048